=== PATIENT | female | born 1995 | race Caucasian/White ===

== ENCOUNTER 2017-05-27 12:51 | Emergency (ER) | payer OTHER ==
--- NOTE | 2017-05-27 12:58 | ER Report ---
History and Physical Time Seen By MD: 12:56 TAN YOUNG May 27, 2017 12:58
--- NOTE | 2017-05-27 13:22 | ER Report ---
History and Physical Time Seen By MD: 13:21 HPI/ROS CHIEF COMPLAINT: Right flank pain HISTORY OF PRESENT ILLNESS: 21-year-old female patient persists to emergency room with complaint of right flank pain. Patient states this been going on for the past several days. She was seen at [facility], was started on antibiotics after the urine showed blood. Patient states that she did not improve with Cipro, and it was changed to Bactrim. She states she's had some improvement with the Bactrim. She states that she seems to have more pain with urination. She denies any diarrhea. Patient did have one episode of vomiting. Patient states that her original urinalysis did not show any white blood cells. He denies having any fevers. States the pain is still fairly significant. REVIEW OF SYSTEMS: Respiratory: No cough, no dyspnea. Cardiovascular: No chest pain, no palpitations. Gastrointestinal: As noted above Musculoskeletal: No back pain. Allergies: Coded Allergies: amoxicillin (Verified Allergy, Intermediate, 05/27/17) ?? Home Meds Active Scripts Ketorolac Tromethamine (KETOROLAC TROMETHAMINE) 10 Mg Tab, 10 MG PO Q6H, #20 TAB Prov:TAN YOUNG [facility] 05/27/17 Ondansetron (ZOFRAN ODT) 4 Mg Tab.rapdis, 4 MG PO Q6H Y for NAUSEA/VOMITING, # 20 TAB.QUINN Prov:TAN YOUNG [facility] 05/27/17 Tamsulosin Hcl (FLOMAX) 0.4 Mg Cap.er.24h, 0.4 MG PO DAILY, #14 CAP Prov:TAN YOUNG [facility] 05/27/17 Past Medical/Surgical History Patient has a past medical history of UTI, occasional alcohol use. Patient has surgical history of wisdom teeth removal. Reviewed Nurses Notes: Yes Constitutional Vital Sign - Last 24 Hours 05/27/17 05/27/17 05/27/17 05/27/17 13:18 13:23 13:36 13:51 Temp 99.8 Pulse 90 ??? 85 Resp 12 B/P (MAP) 135/92 135/92 (106) Pulse Ox 98 98 95 O2 Delivery Room Air 05/27/17 05/27/17 05/27/17 05/27/17 13:56 14:26 14:41 14:56 Pulse 80 86 82 84 Pulse Ox 97 95 96 97 05/27/17 15:04 B/P (MAP) 112/64 (80) Intake and Output 05/27/17 05/27/17 05/28/17 15:00 23:00 07:00 Intake Total 1000 ml Balance 1000 ml Physical Exam General Appearance: The patient is alert, has no immediate need for airway protection and no current signs of toxicity. Respiratory: Chest is non tender, lungs are clear to auscultation. Cardiac: regular rate and rhythm Gastrointestinal: Abdomen is soft and non tender, no masses, bowel sounds normal. Patient had CVA tenderness on the right side. Musculoskeletal: Neck: Neck is supple and non tender. Extremities have full range of motion and are non tender. Skin: No rashes or lesions. DIFFERENTIAL DIAGNOSIS: After history and physical exam differential diagnosis was considered for flank pain including but not limited to musculoskeletal causes, kidney stone, pyelonephritis, shingles, and intra-abdominal causes such as diverticulitis and appendicitis. Medical Decision Making Data Points Result Diagram: 05/27/17 1338 05/27/17 1338 Laboratory Hematology Test 05/27/17 13:21 05/27/17 13:38 Urine Color Colorless Urine Clarity Clear Urine pH 6.0 pH (4.8-9.5) Urine Specific [place] 1.004 Urine Protein Negative mg/dL (NEGATIVE) Urine Glucose (UA) Negative mg/dL (NEGATIVE) Urine Ketones Negative mg/dL (NEGATIVE) Urine Blood Negative (NEGATIVE) Urine Nitrite Negative (NEGATIVE) Urine Bilirubin Negative (NEGATIVE) Urine Urobilinogen Negative mg/dL (0.2-1.9) Urine Leukocyte Esterase Negative (NEGATIVE) Urine RBC None /HPF (0-2/HPF) Urine WBC 1 /HPF (0-5/HPF) Urine Squamous Epithelial Cells Few /LPF (</=FEW) Urine Bacteria Negative /HPF (NONE-FEW) Urine Mucus None /HPF (NONE-FEW) Urine HCG, Qualitative Negative (NEGATIVE) Red Blood Count 4.50 M/uL (4.17-5.56) Mean Corpuscular Volume 89.3 fL (80.0-96.0) Mean Corpuscular Hemoglobin 30.7 pg (26.0-33.0) Mean Corpuscular Hemoglobin Concent 34.4 g/dL (32.0-36.0) Red Cell Distribution Width 13.1 % (11.5-14.5) Mean Platelet Volume 7.7 fL (7.2-11.1) Neutrophils (%) (Auto) 72.4 % (39.4-72.5) Lymphocytes (%) (Auto) 20.5 % (17.6-49.6) Monocytes (%) (Auto) 6.4 % (4.1-12.4) Eosinophils (%) (Auto) 0.1 % (0.4-6.7) Basophils (%) (Auto) 0.6 % (0.3-1.4) Nucleated RBC Relative Count (auto) 0.1 /100WBC Neutrophils # (Auto) 3.6 K/uL (2.0-7.4) Lymphocytes # (Auto) 1.0 K/uL (1.3-3.6) Monocytes # (Auto) 0.3 K/uL (0.3-1.0) Eosinophils # (Auto) 0.0 K/uL (0.0-0.5) Basophils # (Auto) 0.0 K/uL (0.0-0.1) Nucleated RBC Absolute Count (auto) 0.00 K/uL Peripheral Blood Smear No Y/N Sodium Level 140 mmol/L (137-145) Potassium Level 3.6 mmol/L (3.5-5.0) Chloride Level 108 mmol/L (98-107) Carbon Dioxide Level 19 mmol/L (22-31) Blood Urea Nitrogen 7 mg/dl (7-18) Creatinine 0.80 mg/dl (0.52-1.04) Glomerular Filtration Rate Calc > 60.0 Random Glucose 93 mg/dl (75-110) Calcium Level 8.8 mg/dl (8.4-10.2) Total Bilirubin 0.5 mg/dl (0.2-1.3) Aspartate Amino Transf (AST/SGOT) 23 U/L (0-35) Alanine Aminotransferase (ALT/SGPT) 29 U/L (0-56) Alkaline Phosphatase 48 U/L (0-126) C-Reactive Protein < 0.5 mg/dl (<1.0) Total Protein 6.6 gm/dl (6.3-8.2) Albumin 3.9 g/dl (3.5-5.0) Chemistry Test 05/27/17 13:21 46/18 13:38 Urine Color Colorless Urine Clarity Clear Urine pH 6.0 pH (4.8-9.5) Urine Specific [place] 1.004 Urine Protein Negative mg/dL (NEGATIVE) Urine Glucose (UA) Negative mg/dL (NEGATIVE) Urine Ketones Negative mg/dL (NEGATIVE) Urine Blood Negative (NEGATIVE) Urine Nitrite Negative (NEGATIVE) Urine Bilirubin Negative (NEGATIVE) Urine Urobilinogen Negative mg/dL (0.2-1.9) Urine Leukocyte Esterase Negative (NEGATIVE) Urine RBC None /HPF (0-2/HPF) Urine WBC 1 /HPF (0-5/HPF) Urine Squamous Epithelial Cells Few /LPF (</=FEW) Urine Bacteria Negative /HPF (NONE-FEW) Urine Mucus None /HPF (NONE-FEW) Urine HCG, Qualitative Negative (NEGATIVE) White Blood Count 4.9 k/uL (4.5-11.0) Red Blood Count 4.50 M/uL (4.17-5.56) Hemoglobin 13.8 g/dL (12.0-16.0) Hematocrit 40.2 % (34.0-47.0) Mean Corpuscular Volume 89.3 fL (80.0-96.0) Mean Corpuscular Hemoglobin 30.7 pg (26.0-33.0) Mean Corpuscular Hemoglobin Concent 34.4 g/dL (32.0-36.0) Red Cell Distribution Width 13.1 % (11.5-14.5) Platelet Count 229 K/uL (150-450) Mean Platelet Volume 7.7 fL (7.2-11.1) Neutrophils (%) (Auto) 72.4 % (39.4-72.5) Lymphocytes (%) (Auto) 20.5 % (17.6-49.6) Monocytes (%) (Auto) 6.4 % (4.1-12.4) Eosinophils (%) (Auto) 0.1 % (0.4-6.7) Basophils (%) (Auto) 0.6 % (0.3-1.4) Nucleated RBC Relative Count (auto) 0.1 /100WBC Neutrophils # (Auto) 3.6 K/uL (2.0-7.4) Lymphocytes # (Auto) 1.0 K/uL (1.3-3.6) Monocytes # (Auto) 0.3 K/uL (0.3-1.0) Eosinophils # (Auto) 0.0 K/uL (0.0-0.5) Basophils # (Auto) 0.0 K/uL (0.0-0.1) Nucleated RBC Absolute Count (auto) 0.00 K/uL Peripheral Blood Smear No Y/N Glomerular Filtration Rate Calc > 60.0 Calcium Level 8.8 mg/dl (8.4-10.2) Total Bilirubin 0.5 mg/dl (0.2-1.3) Aspartate Amino Transf (AST/SGOT) 23 U/L (0-35) Alanine Aminotransferase (ALT/SGPT) 29 U/L (0-56) Alkaline Phosphatase 48 U/L (0-126) C-Reactive Protein < 0.5 mg/dl (<1.0) Total Protein 6.6 gm/dl (6.3-8.2) Albumin 3.9 g/dl (3.5-5.0) Urinalysis Test 05/27/17 13:21 Urine Color Colorless Urine Clarity Clear Urine pH 6.0 pH (4.8-9.5) Urine Specific [place] 1.004 Urine Protein Negative mg/dL (NEGATIVE) Urine Glucose (UA) Negative mg/dL (NEGATIVE) Urine Ketones Negative mg/dL (NEGATIVE) Urine Blood Negative (NEGATIVE) Urine Nitrite Negative (NEGATIVE) Urine Bilirubin Negative (NEGATIVE) Urine Urobilinogen Negative mg/dL (0.2-1.9) Urine Leukocyte Esterase Negative (NEGATIVE) Urine RBC None /HPF (0-2/HPF) Urine WBC 1 /HPF (0-5/HPF) Urine Squamous Epithelial Cells Few /LPF (</=FEW) Urine Bacteria Negative /HPF (NONE-FEW) Urine Mucus None /HPF (NONE-FEW) Urine HCG, Qualitative Negative (NEGATIVE) EKG/Imaging Imaging EXAMINATION: CT abdomen and pelvis with contrast COMPARISON: None. HISTORY: Right flank pain. PROCEDURE: Multiplanar contrast enhanced CT of the abdomen and pelvis with 75 mL intravenous Isovue 370. One of the following dose optimization techniques was utilized in the performance of this exam: Automated exposure control; adjustment of the mA and/or kV according to the patient's size; or use of an iterative reconstruction technique. Specific details can be referenced in the facility's radiology CT exam operational policy. FINDINGS: Visualized thorax: Negative. Liver: Negative. Gallbladder and biliary system: Negative Spleen: Spleen size is normal. Pancreas: Negative. Adrenal glands: Negative. Kidneys and bladder: Small renal cysts bilaterally. No renal mass or hydronephrosis. 2 mm stone at the right ureterovesical junction. No other radiopaque urolithiasis. Vessels: Within normal limits. Bowel and mesentery: Stomach is within normal limits. No small bowel obstruction. Appendix is unremarkable. Moderate amount of stool in the colon. No bowel or mesenteric inflammation. Pelvic organs: Right ovary 3.9 x 4.0 x 2.4 cm cyst. Lymph nodes: No adenopathy. Free air/free fluid: None. Abdominal wall and osseous structures: Negative. IMPRESSION: 1. 2 mm nonobstructing stone at the right ureterovesical junction. 2. Right ovary 4.0 cm simple cyst. Report Dictated By: Kilo Campuzano MD at 05/27/2017 2:23 PM Report E-Signed By: Kilo Campuzano MD at 05/27/2017 2:30 PM ED Course/Re-evaluation ED Course Patient was admitted and examined, history and physical were obtained. Differential diagnoses were considered. On examination patient had right-sided flank pain. A CBC, CMP, urinalysis were obtained. The results were unremarkable. An ECG was done which was negative. A CT of the abdomen and chest was done which did show a small 2 mm stone at the UVJ on the right ureter. I discussed the findings with the patient. I believe that is the underlying cause of her pain. We will start the patient on Toradol, Zofran and Flomax. Patient did receive Toradol and Zofran here in the emergency room which did improve her pain as well as her nausea. Patient is to follow-up with urology if she has persistent pain. She is to continue to filter her urine. The patient verbalized understanding and agreement with plan. Decision to Disposition Date: May 27, 2017 Decision to Disposition Time: 14:58 Depart Departure Latest Vital Signs Vital Signs Date Time Temp Pulse Resp B/P (MAP) Pulse Ox O2 Delivery O2 Flow Rate FiO2 05/27/17 15:04 112/64 (80) 05/27/17 14:56 84 97 05/27/17 13:18 99.8 12 Room Air Impression: Primary Impression: Renal calculus Condition: Improved Disposition: HOME OR SELF-CARE New Scripts Ketorolac Tromethamine (KETOROLAC TROMETHAMINE) 10 Mg Tab 10 MG PO Q6H, #20 TAB Prov: TAN YOUNG 05/27/17 Ondansetron (ZOFRAN ODT) 4 Mg Tab.rapdis 4 MG PO Q6H Y for NAUSEA/VOMITING, #20 TAB.QUINN Prov: TAN YOUNG 05/27/17 Tamsulosin Hcl (FLOMAX) 0.4 Mg Cap.er.24h 0.4 MG PO DAILY, #14 CAP Prov: TAN YOUNG 05/27/17 Patient Instructions: Kidney Stones (ED) Additional Instructions: Increase fluid intake. Get plenty of rest. Limit activity by pain. Follow up with Urology, Dr Perdomo or Dr. Kaminski, if the stone doesn't pass. Return to the ER if condition worsens. TAN YOUNG May 27, 2017 13:22
[2017-05-27] MEDS ORDERED: NS(*) 0.9% 1000 ML BAG 1,000 ML IV ONE (13:29)
[2017-05-27] MEDS ORDERED: ONDANSETRON 4 MG/2 ML VIAL IVP ONE (13:30)
[2017-05-27] MEDS ORDERED: KETOROLAC 30 MG/ML VIAL IVP ONE (13:30)
[2017-05-27] MEDS ORDERED: IOPAMIDOL 76% 75 ML INFUS BTL 75 ML ONE (13:49)
[2017-05-27 13:51] LABS: PLATELET COUNT, AUTOMATED 229 K/uL (150-450)
--- NOTE | 2017-05-27 14:34 | RADIOLOGY IMAGING REPORT ---
FACILITY: [facility] PATIENT NAME: Juan Miguel Miguel : 1995 MR: [id number] V: [id number] EXAM DATE: ORDERING PHYSICIAN: TAN YOUNG TECHNOLOGIST: [facility] Patient: Juan Miguel Miguel : 1995 Visit/Account:[id number] Date of Sevice: 05/27/2017 EXAMINATION: CT abdomen and pelvis with contrast COMPARISON: None. HISTORY: Right flank pain. PROCEDURE: Multiplanar contrast enhanced CT of the abdomen and pelvis with 75 mL intravenous Isovue 3 70. One of the following dose optimization techniques was utilized in the performance of this exam: A utomated exposure control; adjustment of the mA and/or kV according to the patient's size; or use of an iterative reconstruction technique. Specific details can be referenced in the facility's radiolo gy CT exam operational policy. FINDINGS: Visualized thorax: Negative. Liver: Negative. Gallbladder and biliary system: Negative Spleen: Spleen size is normal. Pancreas: Negative. Adrenal glands: Negative. Kidneys and bladder: Small renal cysts bilaterally. No renal mass or hydronephrosis. 2 mm stone at th e right ureterovesical junction. No other radiopaque urolithiasis. Vessels: Within normal limits. Bowel and mesentery: Stomach is within normal limits. No small bowel obstruction. Appendix is unremar kable. Moderate amount of stool in the colon. No bowel or mesenteric inflammation. Pelvic organs: Right ovary 3.9 x 4.0 x 2.4 cm cyst. Lymph nodes: No adenopathy. Free air/free fluid: None. Abdominal wall and osseous structures: Negative. IMPRESSION: 1. 2 mm nonobstructing stone at the right ureterovesical junction. 2. Right ovary 4.0 cm simple cyst. Report Dictated By: Kilo Campuzano MD at 05/27/2017 2:23 PM Report E-Signed By: Kilo Campuzano MD at 05/27/2017 2:30 PM [id number]
[2017-05-27] MEDS ORDERED: ONDA4TAB PO (14:53)
[2017-05-27] MEDS ORDERED: KET10 PO (14:53)
[2017-05-27] MEDS ORDERED: TAMS0.4C25 PO (14:53)
[2017-05-27 15:04] VITALS: BP 112/64
== END 2017-05-27 15:04 | disposition home or self-care (01) ==
LOC: ER 12:52
DX: N20.0 Calculus of kidney (principal)
CPT/HCPCS: 74177; 81001; 81025; 85025; 86140; 96361; 96374; 96375; 99284; J1885; J2405; J7030; Q9967; 82040; 82247; 82310; 82374; 82435; 82565; 82947; 84075; 84132; 84155; 84295; 84450; 84460; 84520

== ENCOUNTER 2018-03-22 09:15 | Emergency (ER) | payer OTHER ==
[~2018-03-22 09:15] MED LIST: KET10 PO; MEDR10TA57 PO; ONDA4TAB PO; TAMS0.4C25 PO
[2018-03-22] MEDS ORDERED: IOPAMIDOL 76% 50 ML INFUS BTL 100 ML ONE (09:31)
[2018-03-22] MEDS ORDERED: NS(*) 0.9% 50 ML BAG 50 ML ONE (09:32)
--- NOTE | 2018-03-22 09:40 | EKG ---
FACILITY: [facility] PATIENT NAME: NGOC WORKMAN : [id number] MR: [id number] V: [id number] EXAM DATE: ORDERING PHYSICIAN: VISHAL CAUSEY TECHNOLOGIST: NELLI Test Reason : CP\SOB Blood Pressure : / mmHG Vent. Rate : 074 BPM Atrial Rate : 074 BPM P-R Int : 174 ms QRS Dur : 086 ms QT Int : 392 ms P-R-T Axes : 082 091 074 degrees QTc Int : 435 ms Sinus rhythm Possible right atrial enlargement Poor R wave progression through anterior leads No previous ECGs available Confirmed by ROLA SCHERER ([id number]) on 03/22/2018 1:51:46 PM Referred By: PADILLA Confirmed By:ROLA SCHERER
[2018-03-22 09:57] LABS: PLATELET COUNT, AUTOMATED 240 K/uL (150-450)
--- NOTE | 2018-03-22 10:07 | ER Report ---
History and Physical Time Seen By MD: 09:15 Hx. of Stated Complaint: PATIENT REPORTS INTERMITTANT SHORTNESS OF BREATH AND CHEST PAIN FOR THE LAST 8 WEEKS. 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 Patient's E this is been intermittent for the last couple of weeks patient states she was on control she is no longer on it she denies orthopnea PND denies exertional dyspnea says it comes and goes either at rest or with exertion. Patient states the chest pain is have a dull aching sometimes pleuritic in the center part of her chest comes and goes no loosening relieving factors patient says her dyspnea is persistent and consistent with obvious loss of eliciting relieving factors. Patient has also had difficulty maintaining weight patient denies being anorexic or bulimic denies nausea vomiting diarrhea fever chills denies abdominal pain or discomfort REVIEW OF SYSTEMS: Respiratory: Shortness of breath dyspnea Cardiovascular: Chest pain no palpitations Gastrointestinal: No vomiting, no abdominal pain. Musculoskeletal: No back pain. Remainder of the 14 system rev: Yes Allergies: Coded Allergies: amoxicillin (Verified Allergy, Intermediate, 05/27/17) ?? Home Meds Active Scripts Medroxyprogesterone Acetate (PROVERA) 10 Mg Tablet, 10 MG PO DAILY, #10 TAB 0 Refills Prov:YOLANDE AYALA DO 01/05/18 Ondansetron (ZOFRAN ODT) 4 Mg Tab.rapdis, 4 MG PO Q6H PRN for NAUSEA/VOMITING, #20 TAB.QUINN Prov:TAN YOUNG 05/27/17 Reviewed Nurses Notes: Yes Old Medical Records Reviewed: Yes Smoking Status: Never Smoker Hx Substance Use Disorder: No Hx Alcohol Use: Yes (OCCATIONAL) Constitutional Vital Sign - Last 24 Hours 03/22/18 03/22/18 03/22/18 03/22/18 09:25 09:27 09:30 09:45 Pulse 73 Resp 28 B/P (MAP) 114/75 114/75 (88) 110/74 (86) 112/76 (88) O2 Delivery Room Air 03/22/18 03/22/18 03/22/18 03/22/18 10:00 10:05 10:30 10:35 Pulse ??? 82 Resp 19 B/P (MAP) 109/73 (85) 108/66 (80) Pulse Ox 97 03/22/18 03/22/18 03/22/18 03/22/18 10:45 11:00 11:05 11:15 Pulse 77 Resp 6 B/P (MAP) 103/69 (80) 110/59 (76) 105/66 (79) Pulse Ox 95 Physical Exam General Appearance: [The patient is alert, has no immediate need for airway protection and no current signs of toxicity.] No apparent distress to respiratory, Eyes: Pupils equal and round no injection. Respiratory: Chest is non tender, lungs are clear to auscultation. Cardiac: regular rate and rhythm [ ] Gastrointestinal: Abdomen is soft and non tender, no masses, bowel sounds normal. Musculoskeletal: Neck: Neck is supple and non tender. Extremities have full range of motion and are non tender. Skin: No rashes or lesions. [ ] DIFFERENTIAL DIAGNOSIS: After history and physical exam differential diagnosis was considered for anxiety pulmonary embolus cardiac abnormality mass lesion Medical Decision Making Data Points Result Diagram: 03/22/18 0938 03/22/18 0938 Laboratory Hematology Test 03/22/18 09:23 03/22/18 09:38 Urine HCG, Qualitative Negative (NEGATIVE) Thyroid Stimulating Hormone (TSH) 1.46 uIU/ml (0.46-4.68) Red Blood Count 5.14 M/uL (4.17-5.56) Mean Corpuscular Volume 89.6 fL (80.0-96.0) Mean Corpuscular Hemoglobin 30.6 pg (26.0-33.0) Mean Corpuscular Hemoglobin Concent 34.1 g/dL (32.0-36.0) Red Cell Distribution Width 13.0 % (11.5-14.5) Mean Platelet Volume 7.2 fL (7.2-11.1) Neutrophils (%) (Auto) 64.7 % (39.4-72.5) Lymphocytes (%) (Auto) 24.3 % (17.6-49.6) Monocytes (%) (Auto) 9.8 % (4.1-12.4) Eosinophils (%) (Auto) 0.1 % (0.4-6.7) Basophils (%) (Auto) 1.1 % (0.3-1.4) Nucleated RBC Relative Count (auto) 0.1 /100WBC Neutrophils # (Auto) 2.7 K/uL (2.0-7.4) Lymphocytes # (Auto) 1.0 K/uL (1.3-3.6) Monocytes # (Auto) 0.4 K/uL (0.3-1.0) Eosinophils # (Auto) 0.0 K/uL (0.0-0.5) Basophils # (Auto) 0.0 K/uL (0.0-0.1) Nucleated RBC Absolute Count (auto) 0.00 K/uL Sodium Level 139 mmol/L (137-145) Potassium Level 3.3 mmol/L (3.5-5.0) Chloride Level 110 mmol/L (98-107) Carbon Dioxide Level 21 mmol/L (22-31) Blood Urea Nitrogen 18 mg/dl (7-18) Creatinine 0.70 mg/dl (0.52-1.04) Glomerular Filtration Rate Calc > 60.0 Random Glucose 90 mg/dl (75-110) Calcium Level 9.7 mg/dl (8.4-10.2) Total Bilirubin 0.9 mg/dl (0.2-1.3) Aspartate Amino Transf (AST/SGOT) 27 U/L (0-35) Alanine Aminotransferase (ALT/SGPT) 27 U/L (0-56) Alkaline Phosphatase 62 U/L (0-126) Troponin I < 0.012 ng/ml Total Protein 8.2 g/dl (6.3-8.2) Albumin 4.9 g/dl (3.5-5.0) Chemistry Test 03/22/18 09:23 03/22/18 09:38 Urine HCG, Qualitative Negative (NEGATIVE) Thyroid Stimulating Hormone (TSH) 1.46 uIU/ml (0.46-4.68) White Blood Count 4.1 k/uL (4.5-11.0) Red Blood Count 5.14 M/uL (4.17-5.56) Hemoglobin 15.7 g/dL (12.0-16.0) Hematocrit 46.1 % (34.0-47.0) Mean Corpuscular Volume 89.6 fL (80.0-96.0) Mean Corpuscular Hemoglobin 30.6 pg (26.0-33.0) Mean Corpuscular Hemoglobin Concent 34.1 g/dL (32.0-36.0) Red Cell Distribution Width 13.0 % (11.5-14.5) Platelet Count 240 K/uL (150-450) Mean Platelet Volume 7.2 fL (7.2-11.1) Neutrophils (%) (Auto) 64.7 % (39.4-72.5) Lymphocytes (%) (Auto) 24.3 % (17.6-49.6) Monocytes (%) (Auto) 9.8 % (4.1-12.4) Eosinophils (%) (Auto) 0.1 % (0.4-6.7) Basophils (%) (Auto) 1.1 % (0.3-1.4) Nucleated RBC Relative Count (auto) 0.1 /100WBC Neutrophils # (Auto) 2.7 K/uL (2.0-7.4) Lymphocytes # (Auto) 1.0 K/uL (1.3-3.6) Monocytes # (Auto) 0.4 K/uL (0.3-1.0) Eosinophils # (Auto) 0.0 K/uL (0.0-0.5) Basophils # (Auto) 0.0 K/uL (0.0-0.1) Nucleated RBC Absolute Count (auto) 0.00 K/uL Glomerular Filtration Rate Calc > 60.0 Calcium Level 9.7 mg/dl (8.4-10.2) Total Bilirubin 0.9 mg/dl (0.2-1.3) Aspartate Amino Transf (AST/SGOT) 27 U/L (0-35) Alanine Aminotransferase (ALT/SGPT) 27 U/L (0-56) Alkaline Phosphatase 62 U/L (0-126) Troponin I < 0.012 ng/ml Total Protein 8.2 g/dl (6.3-8.2) Albumin 4.9 g/dl (3.5-5.0) Urinalysis Test 03/22/18 09:23 Urine HCG, Qualitative Negative (NEGATIVE) ED Course/Re-evaluation ED Course 22-year-old female presents with shortness of breath intermittent for the past 8 months her workup such is negative including CT angiography Baseline labs blood work even read a TSH panel this was negative patient was diagnosed with presumed anxiety was started on low-dose Xanax and folic primary care Decision to Disposition Date: Mar 22, 2018 Decision to Disposition Time: 12:10 Depart Departure Latest Vital Signs Vital Signs Date Time Temp Pulse Resp B/P (MAP) Pulse Ox O2 Delivery O2 Flow Rate FiO2 03/22/18 11:15 105/66 (79) 03/22/18 11:05 77 6 95 03/22/18 09:25 Room Air Impression: Primary Impression: ANXIETY DISORDER DUE TO KNOWN PHYSIOLOGICAL CONDITION Condition: Improved Disposition: HOME OR SELF-CARE Referrals: JORDEN KWAN MD 5 Days New Scripts Alprazolam (XANAX) 0.5 Mg Tablet 1 TAB PO TID for 14 Days, #30 TAB Prov: VISHAL CAUSEY MD 03/22/18 Patient Instructions: Anxiety (DC) VISHAL CAUSEY MD Mar 22, 2018 10:07
--- NOTE | 2018-03-22 10:29 | RADIOLOGY IMAGING REPORT ---
[facility] PATIENT NAME: Juan Miguel Miguel : 1995 MR: [id number] V: [id number] EXAM DATE: ORDERING PHYSICIAN: VISHAL CAUSEY TECHNOLOGIST: Location: [facility] [place] Patient: Juan Miguel Miguel : 1995 Visit/Account:[id number] Date of Sevice: 03/22/2018 2 VIEWS CHEST INDICATION: Chest pain for several weeks, shortness of breath. COMPARISON: None available FINDINGS: Heart is normal. Lungs are clear. No acute bony finding. No effusion or pneumothorax. IMPRESSION: 1. No acute cardiopulmonary process. Report Dictated By: Vishal Valencia MD at 03/22/2018 10:24 AM Report E-Signed By: Vishal Valencia MD at 03/22/2018 10:24 AM WSN:[id number]
--- NOTE | 2018-03-22 10:59 | RADIOLOGY IMAGING REPORT ---
FACILITY: [facility] [place] PATIENT NAME: Juan Miguel Miguel : 1995 MR: [id number] V: [id number] EXAM DATE: ORDERING PHYSICIAN: VISHAL CAUSEY TECHNOLOGIST: Location: [facility] [place] Patient: Juan Miguel Miguel : 1995 Visit/Account:[id number] Date of Sevice: 03/22/2018 CT angiogram chest with contrast Indication: Shortness of breath. Chest pain. Evaluate for pulmonary embolism. Comparison: None available. Technique: Axial CT images are obtained through the chest after administration of 75 mL Isovue 370 IV contrast. Reformatted coronal and sagittal images were reviewed as well as coronal MIP images. One o f the following dose optimization techniques was utilized in the performance of this exam: Automated exposure control; adjustment of the mA and/or kV according to the patient's size; or use of an iterat vitaly reconstruction technique. Specific details can be referenced in the facility's radiology CT exa m operational policy. FINDINGS: There is no evidence of acute pulmonary embolism. There is no axillary adenopathy. No enlarged hilar or mediastinal nodes are seen. No pericardial effusion. No pleural effusion. Examination of the lung windows demonstrates no focal confluent infiltrate. No pneumothorax. Limited images of the upper abdomen are unremarkable. No abnormality of the thoracic spine. IMPRESSION: 1. Normal examination. No evidence of acute pulmonary embolism. Report Dictated By: Matt Chu at 03/22/2018 10:45 AM Report E-Signed By: Matt Chu at 03/22/2018 10:55 AM WSN:[id number]
[2018-03-22 12:00] VITALS: BP 104/75
[2018-03-22] MEDS ORDERED: ALPR-429 PO (12:12)
== END 2018-03-22 12:23 | disposition home or self-care (01) ==
LOC: ER 09:33
DX: F41.9 Anxiety disorder, unspecified (principal)
CPT/HCPCS: 71046; 71275; 81025; 84443; 84484; 85025; 93005; 99284; J7050; Q9967; 82040; 82247; 82310; 82374; 82435; 82565; 82947; 84075; 84132; 84155; 84295; 84450; 84460; 84520